=== PATIENT | female | born 1960 | race Caucasian/White ===

== ENCOUNTER 2016-09-17 09:41 | Inpatient (IN) | payer BC, OTHER ==
[~2016-09-17] VITALS: Ht 157.5 cm; Wt 113.8 kg
--- NOTE | ~2016-09-17 | HC ---
[facility] [place] [address] CONSULTATION Name: JEANMARIE ANNE Room #: 244-P [facility] IN M.R.#: [id number] Admission: 09/17/16 Attend Phys: Luis Estrella DO Discharge: Date of : 62 Report #: [id number] THIS REPORT FOR: //name// CC: Luis Negretehanie Yamil DATE OF SERVICE: 09/20/2016 REASON FOR CONSULTATION: I was asked to evaluate concerning sepsis and diverticulitis-C. difficile colitis. HISTORY OF PRESENT ILLNESS: The patient is a 56-year-old who has underlying COPD and known diverticulosis. Several weeks ago, she was hospitalized with [id number] respiratory failure, exacerbation of COPD. She was discharged on Levaquin and prednisone taper. She finished her treatment last week. Now hospitalized with acute onset of abdominal pain associated with profuse diarrhea, low grade fever. Her pain worsened yesterday along with her diarrhea, tachycardia and increased lactate. She was transferred down to intensive care and given IV fluids. Placed on Zosyn in addition to vancomycin when C. diff, PCR came back positive. Feels better today, although still has significant pain, mostly in the right upper quadrant. Her stools remain liquid. She has a rectal tube in place. CT scan of the abdomen and pelvis showed evidence of inflammatory change in the hepatic flexure associated with what appears to give a microperforation and a 6 cm inflammatory mass in the around this area. No definite abscess. No other diffuse colitis changes seen. Previous cholecystectomy and hysterectomy. REVIEW OF SYSTEMS: No significant cough or sputum production. Her nausea has resolved. Has an indwelling Shane catheter and a PICC line. ALLERGIES: LIDOCAINE, LATEX. MEDICATIONS: As noted on her MAR including Zosyn, enteral vancomycin, IV metronidazole. PAST MEDICAL HISTORY: COPD; autoimmune liver disease, in remission; fibromyalgia; osteoporosis; hypertension; hyperlipidemia; interstitial lung disease; pulmonary cysts, status post thoracotomy; gastroesophageal reflux; anxiety; diverticulosis; total abdominal hysterectomy; bilateral salpingo-oophorectomy; cholecystectomy; history of alcohol intoxication, ankle fracture. FAMILY HISTORY: Noncontributory. SOCIAL HISTORY: Previous tobacco use and alcohol use. [facility] [address] [place] [address] CONSULTATION Name: JEANMARIE ANNE Room #: 244-P [facility] IN ..#: [id number] Admission: 09/17/16 Attend Phys: Luis Estrella DO Discharge: Date of : 62 Report #: [id number] PHYSICAL EXAMINATION: VITAL SIGNS: Currently afebrile. Heart rate 115. Vital signs were stable. Temperature was 99.3. GENERAL: Alert and cooperative. O2 saturation satisfactory on room air. Moderately obese. HEENT: Unremarkable. CHEST: Few crackles in the right base posteriorly. HEART: Regular, tachycardic. ABDOMEN: Obese, soft, tender throughout, most notable in the right upper quadrant with guarding. No rebound. Rectal tube in place with green liquid stool. EXTREMITIES: Unremarkable. LABORATORY STUDIES: Sodium 140, potassium 3.2, bicarbonate 18, creatinine 0.8. Liver function tests normal. Hemoglobin 9.8, platelet count 300,000, white count 4.7. Yesterday, she had 33% bands, now down to 7% bands. C. diff PCR positive. Urinalysis unremarkable. Lactate 2.7. Yesterday with a pH of 7.3. Stool occults were negative. Blood cultures are pending. Urine culture is negative to date. IMPRESSION AND PLAN: A 56-year-old with underlying chronic obstructive pulmonary disease, recently off steroids, now with diverticulitis and microperforation. No clear abscess amenable to drainage. Complicated by Clostridium difficile colitis. Along with this is sepsis, bandemia, lactic acidosis, metabolic acidosis. A surgical consultation has been obtained and a recommend observation at this time. I would recommend continuing broad antibiotic coverage with Zosyn for her perforation. Continue with metronidazole intravenously and enteral vancomycin. We will need to follow serial x-rays. Fluid resuscitation. Hopefully can avoid any further corticosteroid use in the near future. We need to monitor her condition closely. If any further deterioration, would require resection of the hepatic with an ileostomy. The patient will ultimately undergo surgical procedure to resect this area, but hopefully we can do this under more controlled situation. <ELECTRONICALLY SIGNED> By: Emilio Disla MD 09/20/162012 0951 1214 Emilio Disla MD /nt
--- NOTE | ~2016-09-17 | EKG ---
[address] [place] [address] ELECTROCARDIOGRAM REPORT Name: JEANMARIE ANNEN Room #: 244-P ADM IN M.R.#: [id number] Admission: 09/17/16 Attend Phys: Luis Estrella DO Discharge: Date of : 62 Report #: [id number] THIS REPORT FOR: //name// [facility] Test Date: 2016-09-19 Test Time: 17:07:30 Pat Name: JEANMARIE ANNE Department: Room: 244 Gender: F Room Service Waiter/Waitress: Paola ALEJO : 1960 Requested By: Luis Estrella Order Number: [id number] MD: Louis Jeter Measurements Intervals [place] Rate: 98 P: 55 ID: [id number] QRS: 11 QRSD: 97 T: 22 QT: 352 QTc: 450 Interpretive Statements Sinus rhythm No significant abnormality Compared to ECG 08/23/2016 10:04:01 No significant changes Electronically Signed On 09-20-2016 8:26:34 CDT by Louis Jeter [email or web address] <ELECTRONICALLY SIGNED> By: Louis Jeter MD, [facility] 09/20/16 0826 06 06 Louis Jeter MD, [facility] /EPI
--- NOTE | ~2016-09-17 | HC ---
[facility] [place] [address] CONSULTATION Name: JEANMARIE ANNE Room #: 244-P ADM IN M.R.#: [id number] Admission: 09/17/16 Attend Phys: Luis Estrella DO Discharge: Date of : 62 Report #: [id number] THIS REPORT FOR: //name// CC: Luis Lobo PRIMARY PHYSICIAN: Unknown. REFERRAL PHYSICIAN: Luis Estrella DO REASON FOR REFERRAL: Severe sepsis. HISTORY OF PRESENT ILLNESS: The patient is a 56-year-old white female who presents to the emergency room with increased abdominal pain. Overnight, she is felt to be septic. She was transferred to the ICU. Critical care, pulmonary consultation was requested. The patient was recently seen on most last hospitalization, 08/23/2016. She was admitted for exacerbation of asthma. She has known autoimmune hepatitis along with history of cystic lung disease. On this admission, because of abdominal pain, GI was consulted. CT abdomen and pelvis suggests diverticulitis. She is also felt to have C. difficile colitis. Presently, she is fairly stable in the ICU. Hemodynamically, she is stable. She denies any dyspnea. She does have abdominal pain. Denies any recent hemoptysis, hematemesis, hematochezia, or melena. PAST MEDICAL HISTORY: Notable for history of autoimmune hepatitis, , hypertension, osteoporosis, fibromyalgia, hypocholesterolemia, thoracotomy for "cyst resection from her lungs." She is also felt to have COPD. PAST SURGICAL HISTORY: As mentioned above. ALLERGIES: LATEX, which causes and LIDOCAINE causes nausea and vomiting. HOME MEDICATIONS: List reviewed. CURRENT HOSPITAL MEDICATIONS: Also reviewed. This includes Levaquin, nebulized bronchodilators, Cipro, and Flagyl. FAMILY HISTORY: Noncontributory. SOCIAL HISTORY: The patient does smoke. She drinks socially. REVIEW OF SYSTEMS: As mentioned above, otherwise 10-point system review negative. [facility] [address] [place] [address] CONSULTATION Name: JEANMARIE ANNE Room #: 244-P [facility] IN .R.#: [id number] Admission: 09/17/16 Attend Phys: Luis Estrella DO Discharge: Date of : 62 Report #: [id number] PHYSICAL EXAMINATION: GENERAL: She is awake, alert, in mild distress. VITAL SIGNS: Temperature is 99.4 degrees Fahrenheit, pulse is 120, respiratory rate is 20, blood pressure is 110/73 mmHg, and saturation 98%. HEENT: Normocephalic, atraumatic. NECK: Supple without lymphadenopathy or thyromegaly. CHEST: Breath sounds are decreased, but are clear without rales or wheezes. CARDIOVASCULAR: Distant heart sounds, but no obvious murmurs or gallop. Pulses are 2+/4+ bilaterally. BREASTS: Deferred. ABDOMEN: Soft, tender without any rebound tenderness, no masses felt. RECTAL: Deferred. EXTREMITIES: There is no edema, cyanosis or clubbing. LABORATORY DATA: CT abdomen and pelvis as mentioned above. Chest x-ray, mild basilar atelectasis. C. difficile toxin was positive. Electrolytes: Sodium 138, potassium 3.7, chloride 106, CO2 is 20, BUN is 11, creatinine is 1.6. Liver function profile is grossly unremarkable. WBC 5900, hemoglobin is 12.0, there are 33% bandemia. Albumin 2.4. Arterial blood gas revealed pH 7.30, pCO2 of 35, pO2 80 on room air. IMPRESSION: 1. Severe sepsis secondary to Clostridium difficile colitis along with diverticulitis. 2. Progressive metabolic acidosis due to severe sepsis. Suspect lactic acidosis. 3. Acute kidney injury due to above. 4. Protein-calorie malnutrition, severe. 5. Acute respiratory distress. 6. History of chronic obstructive pulmonary disease, presumed asthma. 7. Autoimmune hepatitis. Agree with sepsis protocol. IV fluids, vasopressors as needed. She will need IV access. I will consult PICC IV access team or interventional radiology. We will need to correct metabolic acidosis. CT of the abdomen and pelvis suggests possible small bowel perforation. She has been followed by surgery and GI. If symptoms does not improve, she may warrant surgical treatment. DVT and GI prophylaxis will be addressed. Bronchodilators will be added, but we will defer corticosteroids given her infectious and given her above problems. [address] [address] CONSULTATION Name: JEANMARIE ANNE Room #: 244-P ADM IN M.R.#: [id number] Admission: 09/17/16 Attend Phys: Luis Estrella DO Discharge: Date of : 62 Report #: [id number] Thank you for this consultation. <ELECTRONICALLY SIGNED> By: Suresh Morgan MD 09/20/16 1557 1049 1324 Suresh Morgan MD /nt
--- NOTE | ~2016-09-17 | HC ---
[facility] [place] [address] CONSULTATION Name: JEANMARIE ANNE Room #: 244-P [facility] IN M.R.#: [id number] Admission: 09/17/16 Attend Phys: Luis Estrella DO Discharge: Date of : 62 Report #: [id number] THIS REPORT FOR: //name// CC: Luis Estrella Edwina Shentree DATE OF SERVICE: 09/19/2016 ATTENDING PHYSICIAN: Luis Estrella DO CONSULTING PHYSICIAN: Que Monaco MD REASON FOR CONSULTATION: Abdominal pain. HISTORY OF PRESENT ILLNESS: This is a friendly 56-year-old female patient who I was asked to see emergently for abdominal pain. The patient was admitted on 09/17/2016. She had developed abdominal pain in her right abdomen and subjective low-grade fever and diaphoresis. Her symptoms started around 7 p.m. on Saturday evening, which prompted her visit to the emergency room the following morning. She also had nausea and vomiting. At the time of her admission, she underwent a CT of the abdomen and pelvis which showed diverticulitis with moderate diverticulosis at the hepatic flexure without abscess or free air. The patient was also found to be Clostridium difficile positive. She has a history of chronic diarrhea. The reason for the stat consult was for mental status changes and worsening abdominal pain. The patient underwent a repeat CT scan and was found to have diverticulitis with a possible microperforation with 1 small air bubble in the tissue cephalad to the colon. Her lactate was also mildly elevated. The patient was transferred to the intensive care unit after her CT scan. The patient denies significant confusion at this time. She reports ongoing pain in the right abdomen, but also answers questions appropriately. She has been passing flatus and liquid stools. She has a history of recent hospitalization this past August for reactive way disease for which she was placed on a prednisone taper. She reports gaining nearly 20 pounds. She is no longer on the prednisone. She also reports having been on prednisone for quite some time prior to her most recent hospitalization. PAST MEDICAL HISTORY: Significant for COPD, asthma, obesity associated with steroid use, autoimmune liver disease, fibromyalgia, osteoporosis, reactive airway disease, hypertension, hyperlipidemia, interstitial lung disease, pulmonary cysts, gastroesophageal reflux and anxiety. She also has known diverticulosis. PAST SURGICAL HISTORY: Includes previous ovarian cystectomy operations, total abdominal hysterectomy with bilateral salpingo-oophorectomy, cholecystectomy, and pulmonary cysts, excised through a thoracotomy. [address] [address] CONSULTATION Name: JEANMARIE ANNE Room #: 244-P [facility] IN M.R.#: [id number] Admission: 09/17/16 Attend Phys: Luis Estrella DO Discharge: Date of : 62 Report #: [id number] HOME MEDICATIONS: (Please see the hospital chart/EMR for details) includes albuterol, Neurontin, Zestril, Zoloft, Ambien, tramadol, Xanax, omeprazole, Singulair, potassium chloride, Colestid and vitamin D. ALLERGIES: LIDOCAINE causes nausea, vomiting and hypertension. The patient also has a LATEX allergy. FAMILY HISTORY: Reviewed and noncontributory to this hospitalization. SOCIAL HISTORY: The patient denies use of tobacco, alcohol or illicit drugs. She reports having drank a bottle of fireball per week and smoking a quarter pack of cigarettes a day, having quit both 1 month ago. She denies any use of illicit drugs. She works in [employer] review at the [employer]. REVIEW OF SYSTEMS: As per history of present illness. GENERAL: The patient denies current fever or chills. Denies unintentional weight loss. She gained at least 100 pounds with steroid use according to the patient. HEENT: Denies changes in taste, vision, hearing, or smell. RESPIRATORY: Denies worsening shortness of breath. Has a history of COPD and reactive airway disease. CARDIOVASCULAR: Denies chest pain or palpitations. GASTROINTESTINAL: As per history of present illness. Denies bright red blood per rectum. GENITOURINARY: Denies dysuria, urgency, increased urinary frequency or hematuria. MUSCULOSKELETAL: Has "nodules" that are occasionally painful. Has a history of fibromyalgia. Reports joint pain. NEUROLOGIC: Denies headaches, numbness or tingling. PSYCHIATRIC: Denies depression, has a history of anxiety. Denies suicidal ideations. SKIN AND INTEGUMENTARY: Denies new skin lesions, rashes, or moles. ENDOCRINE: Denies polydipsia, polyuria, heat or cold intolerance. HEMATOLOGIC: Denies easy bleeding, bruising or anemia. All other review of systems is negative. PHYSICAL EXAMINATION: VITAL SIGNS: Temperature 96.1, blood pressure 95/55, pulse 103, respirations 20. GENERAL: This is an obese 56-year-old female patient in no acute distress. She is slightly slurring her words but otherwise appears appropriate. Alert and oriented. HEENT: Atraumatic, normocephalic with moist mucosal membranes. Oropharynx is clear. She has no scleral icterus. [facility] [address] [place] [address] CONSULTATION Name: JEANMARIE ANNE Room #: 244-P ADM IN M.R.#: [id number] Admission: 09/17/16 Attend Phys: Luis Estrella DO Discharge: Date of : 62 Report #: [id number] NECK: Supple, no appreciable lymphadenopathy. Trachea is midline. CHEST: Clear bilaterally. No crackles or wheezes. CARDIOVASCULAR: Regular rate and rhythm/mild sinus tachycardia, S1, S2. ABDOMEN: Soft, but tender to palpation, greatest in the right mid abdomen. She has no guarding, but mild rebound. There is fullness in the right abdomen. She has no appreciable hernias, no overlying erythema or edema. GENITOURINARY: Normal external female genitalia. EXTREMITIES: No clubbing or cyanosis. NEUROLOGIC: Cranial nerves 2-12 grossly intact. PSYCHIATRIC: Normal mood and affect. SKIN AND INTEGUMENTARY: No acute inflammatory changes, rashes or lesions are present. LABORATORY DATA: CBC Most recently shows a white blood cell count of 5.8, hemoglobin 12.0, hematocrit 35.7 and platelets 294. She has 33% bandemia. Her comprehensive metabolic profile shows sodium 136, potassium 3.7, chloride 106, CO2 20, BUN 11, creatinine 1.6 (from 0.6), glucose 107. Her ABG shows a pH of 7.3, pCO2 35.6, pO2 80.6 and lactate of 2.7. RADIOLOGIC STUDIES: Abdominal x-ray from today shows a nonspecific bowel gas pattern. CT of the abdomen and pelvis findings are as noted above. A 6 cm area of inflammation involving the fat just superior to the junction of the hepatic flexure and proximal transverse colon was present with tiny air collection within the mesenteric fat suggestive of diverticulitis with microperforation and acute inflammatory changes within the adipose tissue. No free intraperitoneal air or abscess was seen. IMPRESSION AND PLAN: This is a 56-year-old female patient with the above listed comorbidities who now has right-sided abdominal pain who was recently diagnosed with Clostridium difficile colitis. She has chronic diarrhea and her bowels are currently functional. She has diverticulitis of the hepatic flexure with a microperforation versus air in small vessel. There is no evidence for free intraperitoneal air at this time. The pathophysiology and natural history of diverticular disease were discussed in detail with the patient as well as treatment alternatives and surgical options. It is possible that the C. diff caused worsening of her diverticulitis. Nonetheless, the patient has complicated diverticulitis of the hepatic flexure (secondary to the microperforation). Simple diverticulitis was also discussed with the patient. Diverticulitis with a microperforation is considered, complicated and because of this, surgical therapy is warranted. She would benefit from resection of the inflamed area (ultimately she would require a right hemicolectomy) after the inflammatory process has subsided, provided she continues to improve on her current antibiotic recommendation. Would also rest her bowel and will follow along with serial abdominal exams as well as labs and x-rays as necessary. Should she clinically defervesce, she may require more emergent resection and this would involve a right hemicolectomy with an end ileostomy that could be [address] [address] CONSULTATION Name: DAYANAJEANMARIE ELINOR Room #: 244-P [facility] IN M.R.#: [id number] Admission: 09/17/16 Attend Phys: Luis Estrella DO Discharge: Date of : 62 Report #: [id number] reversed 6 months after the procedure. The options were discussed in detail with the patient as well as the risks, benefits and expectations. The patient expressed understanding of the current plan to treat conservatively. Sixty three minutes were spent interviewing and examining the patient as well as holding the detailed discussion as documented above after reviewing the images with radiology. I sincerely appreciate the opportunity to participate in the care of this patient and will leave further recommendations and orders in the electronic medical record as appropriate. <ELECTRONICALLY SIGNED> By: Que Monaco MD, FACS 09/21/16 1146 2040 0132 Que Monaco MD, FACS /nt
[~2016-09-17 09:41] MED LIST: ALBUTEROL2.5 MG/0.5 INH; AMBIEN 5 MG TABL5 M1 PO; B12INJ IM; BENTYL 10 MG CA10 M1 PO; BYSTOLIC 5 MG5 M1 PO; COLACE100 MG PO; COLESTID1 GM PO; FLEXERIL PO; GABAPENTIN 100100 MG PO; HYDROCODONE-AP1 EAC6 PO; HYOSCYAMINE0.125 MG PO; IBUPROFEN 800800 M1 PO; IMURAN 50MG TAB50 M1 PO; K-DUR10 MEQ PO; LEVAQUIN 500 M500 M1 PO; LEVAQUIN 500 M500 M2 PO; LEVAQUIN 500 M500 MG PO; LISINOPRIL20 MG PO; OMEPRAZOLE 20 M20 M1 PO; PAXIL10 MG; PERCOCET PO; PREDNISONE 10 M10 MG; PREDNISONE 20 M20 MG PO; PREMARIN0.625 MG PO; PROMETHAZINE/C118 ML PO; PROTONIX 20 MG20 M1 PO; SERTRALINE HCL50 MG PO; SINGULAIR 10 MG10 M1 PO; TESSALON PERLE100 MG PO; TRAMADOL 50 MG50 MG PO; TYLENOL325 MG PO; ULTRAM 50MG TAB50 MG PO; VITAMIN D1000 UNI1 PO; WELLBUTRIN XL150 MG PO; XANAX 0.25 MG0.25 MG PO; ZOFRAN ODT4 MG PO
[2016-09-17 09:48] VITALS: BP 157/108
[2016-09-17 10:08] LABS: URINE BLOOD TRACE (Negative); URINE GLUCOSE-RANDOM* NEGATIVE (Negative); URINE KETONES TRACE (Negative); URINE LEUKOCYTES-REFLEX NEGATIVE (Negative); URINE PROTEIN (DIPSTICK) TRACE (Negative); URINE SPECIFIC GRAVITY 1.025 (1.003-1.035)
[2016-09-17 10:09] LABS: URINE COLOR AMBER
[2016-09-17 10:10] LABS: ICTOTEST (BILI CONFIRMATORY) Negative (Negative); URINE BILIRUBIN NEGATIVE (Negative)
[2016-09-17 10:14] LABS: HEMATOCRIT 38.2 % (37.0-47.0); HEMOGLOBIN 13.1 gm/dL (12.0-15.0); MCH 30.5 pg (26.0-34.0); MCHC 34.3 g/dL (28.0-37.0); MCV 88.9 fL (80.0-100.0); PLATELET COUNT 253 thou/uL (150-400); RDW 13.8 % (10.5-14.5); WBC 15.9 thou/uL (4.0-11.0)
[2016-09-17 10:16] LABS: MANUAL DIFF YES
[2016-09-17 10:34] LABS: CALCIUM 9.4 mg/dL (8.5-10.1); CREATININE 0.7 mg/dL (0.6-1.3); POTASSIUM 3.9 mmol/L (3.5-5.1)
[2016-09-17 10:38] LABS: ALBUMIN 3.4 g/dL (3.4-5.0); TOTAL BILIRUBIN 2.1 mg/dL (<0.1-1.0); TOTAL PROTEIN 7.9 g/dL (6.4-8.2)
[2016-09-17 10:39] LABS: ABSOLUTE NEUTROPHILS 12.7 thou/uL (1.4-8.2); PLATELET ESTIMATE NORMAL; TOTAL CELL COUNT 100
[2016-09-17 15:10] VITALS: BP 125/77
[2016-09-17 15:30] VITALS: BP 108/65
[2016-09-17 19:45] VITALS: BP 182/74
[2016-09-18] VITALS (9 sets, daily range): BP systolic 98–149; BP diastolic 58–82
[2016-09-18 06:17] LABS: ALBUMIN 2.7 g/dL (3.4-5.0); CALCIUM 8.5 mg/dL (8.5-10.1); CREATININE 0.7 mg/dL (0.6-1.3); TOTAL BILIRUBIN 1.9 mg/dL (<0.1-1.0); TOTAL PROTEIN 6.6 g/dL (6.4-8.2)
[2016-09-18 18:50] LABS: CALCIUM 8.9 mg/dL (8.5-10.1); CREATININE 0.7 mg/dL (0.6-1.3); MAGNESIUM 1.6 mg/dL (1.8-2.4)
[2016-09-18 19:21] LABS: ALBUMIN 2.9 g/dL (3.4-5.0); DIRECT BILIRUBIN 0.2 mg/dL (<0.1-0.3)
[2016-09-19] VITALS (14 sets, daily range): BP systolic 84–149; BP diastolic 42–122
[2016-09-19 06:49] LABS: HEMATOCRIT 32.4 % (37.0-47.0); MCH 30.7 pg (26.0-34.0); MCHC 33.7 g/dL (28.0-37.0); MCV 90.9 fL (80.0-100.0); PLATELET COUNT 263 thou/uL (150-400); RBC 3.57 mil/uL (4.20-5.00); RDW 13.5 % (10.5-14.5); WBC 2.7 thou/uL (4.0-11.0)
[2016-09-19 06:55] LABS: HEMOGLOBIN 10.9 gm/dL (12.0-15.0); MANUAL DIFF YES
[2016-09-19 07:18] LABS: ALBUMIN 2.4 g/dL (3.4-5.0); CREATININE 0.6 mg/dL (0.6-1.3); POTASSIUM 3.4 mmol/L (3.5-5.1); TOTAL BILIRUBIN 0.6 mg/dL (<0.1-1.0); TOTAL PROTEIN 5.4 g/dL (6.4-8.2)
[2016-09-19 09:06] LABS: TOTAL CELL COUNT 100
[2016-09-19 09:08] LABS: ABSOLUTE NEUTROPHILS 1.5 thou/uL (1.4-8.2)
[2016-09-19 17:01] LABS: ABG SAMPLE TYPE ARTERIAL; BE(vivo) -8.4 mmol/L (-2 to +3); HCO3 17.2 mmol/L (22.0-26.0); LACTATE 2.76 mmol/L (0.5-2.0); O2(CT) 15.7 mL/dL (15.0-23.0); O2Hb 94.8 % (92.0-98.0); PCO2 35.6 mmHg (35.0-45.0); PO2 80.6 mmHg (80.0-100.0); STICK SITE R.RADIAL; pH 7.302 (7.360-7.450); sO2 94.9 % (92.0-98.0); tCO2 18.3 mmol/L (24.0-30.0)
[2016-09-19 17:58] LABS: HEMATOCRIT 35.7 % (37.0-47.0); MCH 31.1 pg (26.0-34.0); MCHC 33.5 g/dL (28.0-37.0); MCV 92.9 fL (80.0-100.0); PLATELET COUNT 294 thou/uL (150-400); RBC 3.84 mil/uL (4.20-5.00); RDW 13.9 % (10.5-14.5); WBC 5.8 thou/uL (4.0-11.0)
[2016-09-19 18:04] LABS: CALCIUM 8.7 mg/dL (8.5-10.1); POTASSIUM 3.7 mmol/L (3.5-5.1)
[2016-09-19 18:09] LABS: ALBUMIN 2.7 g/dL (3.4-5.0); TOTAL BILIRUBIN 0.3 mg/dL (<0.1-1.0); TOTAL PROTEIN 6.6 g/dL (6.4-8.2)
[2016-09-19 18:16] LABS: MANUAL DIFF YES
[2016-09-19 18:18] LABS: CREATININE 1.6 mg/dL (0.6-1.3)
[2016-09-19 18:53] LABS: ABSOLUTE NEUTROPHILS 3.5 thou/uL (1.4-8.2); METAMYELOCYTES 1 %; TOTAL CELL COUNT 100
[2016-09-19 18:54] LABS: ANISOCYTOSIS 2+; POLYCHROMASIA OCCASIONAL
[2016-09-20] VITALS (47 sets, daily range): BP systolic 73–150; BP diastolic 43–98
[2016-09-20 00:02] LABS: URINE BILIRUBIN NEGATIVE (Negative); URINE BLOOD TRACE (Negative); URINE COLOR YELLOW; URINE GLUCOSE-RANDOM* NEGATIVE (Negative); URINE KETONES NEGATIVE (Negative); URINE LEUKOCYTES-REFLEX NEGATIVE (Negative); URINE PROTEIN (DIPSTICK) TRACE (Negative); URINE UROBILINOGEN 0.2 E.U./dl (0.2-1.0)
[2016-09-20 07:09] LABS: HEMATOCRIT 28.5 % (37.0-47.0); MCH 31.4 pg (26.0-34.0); MCHC 34.5 g/dL (28.0-37.0); MCV 90.9 fL (80.0-100.0); PLATELET COUNT 300 thou/uL (150-400); RBC 3.13 mil/uL (4.20-5.00); RDW 13.6 % (10.5-14.5); WBC 4.7 thou/uL (4.0-11.0)
[2016-09-20 07:16] LABS: HEMOGLOBIN 9.8 gm/dL (12.0-15.0); MANUAL DIFF YES
[2016-09-20 07:28] LABS: CALCIUM 7.9 mg/dL (8.5-10.1); CREATININE 0.8 mg/dL (0.6-1.3); MAGNESIUM 1.6 mg/dL (1.8-2.4); POTASSIUM 3.2 mmol/L (3.5-5.1)
[2016-09-20 07:53] LABS: APTT 32.1 Seconds (24.5-32.8); INR 1.1; PROTIME 11.4 Seconds (9.3-11.4)
[2016-09-20 08:16] LABS: ABSOLUTE NEUTROPHILS 2.1 thou/uL (1.4-8.2); ANISOCYTOSIS SLIGHT; ATYPICAL LYMPHS 1 %; METAMYELOCYTES 1 %; POLYCHROMASIA OCCASIONAL; TOTAL CELL COUNT 100
[2016-09-20 13:43] LABS: POTASSIUM 3.6 mmol/L (3.5-5.1)
[2016-09-21] VITALS (17 sets, daily range): BP systolic 104–134; BP diastolic 63–87
[2016-09-21 06:32] LABS: HEMATOCRIT 30.3 % (37.0-47.0); HEMOGLOBIN 10.3 gm/dL (12.0-15.0); MCH 30.6 pg (26.0-34.0); MCHC 33.9 g/dL (28.0-37.0); MCV 90.1 fL (80.0-100.0); PLATELET COUNT 311 thou/uL (150-400); RBC 3.36 mil/uL (4.20-5.00); RDW 13.9 % (10.5-14.5); WBC 4.5 thou/uL (4.0-11.0)
[2016-09-21 06:38] LABS: MANUAL DIFF YES
[2016-09-21 06:42] LABS: CALCIUM 8.2 mg/dL (8.5-10.1); CREATININE 0.6 mg/dL (0.6-1.3); POTASSIUM 3.7 mmol/L (3.5-5.1)
[2016-09-21 07:41] LABS: METAMYELOCYTES 1 %; TOTAL CELL COUNT 100
[2016-09-21 07:42] LABS: ABSOLUTE NEUTROPHILS 2.5 thou/uL (1.4-8.2)
[2016-09-22 04:18] VITALS: BP 112/69
[2016-09-22 05:35] LABS: HEMATOCRIT 29.9 % (37.0-47.0); HEMOGLOBIN 10.1 gm/dL (12.0-15.0); MCH 30.5 pg (26.0-34.0); MCHC 33.7 g/dL (28.0-37.0); MCV 90.5 fL (80.0-100.0); PLATELET COUNT 308 thou/uL (150-400); RDW 14.1 % (10.5-14.5); WBC 6.3 thou/uL (4.0-11.0)
[2016-09-22 05:42] LABS: MANUAL DIFF YES
[2016-09-22 05:52] LABS: CALCIUM 8.3 mg/dL (8.5-10.1); CREATININE 0.7 mg/dL (0.6-1.3); POTASSIUM 3.8 mmol/L (3.5-5.1)
[2016-09-22 06:26] LABS: ABSOLUTE NEUTROPHILS 3.3 thou/uL (1.4-8.2); NUCLEATED RBCS 1 /100WBC; TOTAL CELL COUNT 100
[2016-09-22 06:27] LABS: ANISOCYTOSIS 1+; POIKILOCYTOSIS SLIGHT; POLYCHROMASIA OCCASIONAL
[2016-09-22 08:20] VITALS: BP 118/66
[2016-09-22 12:30] VITALS: BP 122/77
[2016-09-22 16:53] VITALS: BP 102/52
[2016-09-22 19:45] VITALS: BP 136/89
[2016-09-23 04:43] VITALS: BP 118/68
[2016-09-23 05:04] LABS: ABSOLUTE NEUTROPHILS 3.8 thou/uL (1.4-8.2); BASOPHILS 0.5 % (0.0-2.0); EOSINOPHILS 5.3 % (0.0-3.0); HEMATOCRIT 29.6 % (37.0-47.0); LYMPHOCYTES 27.3 % (24.0-44.0); MCH 30.4 pg (26.0-34.0); MCHC 33.8 g/dL (28.0-37.0); MCV 89.9 fL (80.0-100.0); MONOCYTES 11.6 % (1.0-8.0); PLATELET COUNT 314 thou/uL (150-400); POLYS 55.3 % (36.0-66.0); RBC 3.29 mil/uL (4.20-5.00); RDW 13.9 % (10.5-14.5); WBC 6.8 thou/uL (4.0-11.0)
[2016-09-23 05:13] LABS: MANUAL DIFF NO
[2016-09-23 05:16] LABS: CALCIUM 8.2 mg/dL (8.5-10.1); CREATININE 0.7 mg/dL (0.6-1.3); POTASSIUM 3.6 mmol/L (3.5-5.1)
[2016-09-23 17:46] VITALS: BP 120/70
[2016-09-23 20:11] VITALS: BP 102/66
[2016-09-24 05:13] VITALS: BP 126/76
[2016-09-24 12:41] VITALS: BP 113/63
[2016-09-24 21:09] VITALS: BP 106/66
[2016-09-25 05:00] VITALS: BP 126/72
[2016-09-25 05:19] LABS: HEMATOCRIT 32.2 % (37.0-47.0); HEMOGLOBIN 10.8 gm/dL (12.0-15.0); MCHC 33.4 g/dL (28.0-37.0); MCV 89.8 fL (80.0-100.0); PLATELET COUNT 334 thou/uL (150-400); RBC 3.59 mil/uL (4.20-5.00); RDW 14.2 % (10.5-14.5); WBC 8.3 thou/uL (4.0-11.0)
[2016-09-25 05:20] LABS: MANUAL DIFF YES
[2016-09-25 05:29] LABS: CALCIUM 9.1 mg/dL (8.5-10.1); CREATININE 0.7 mg/dL (0.6-1.3); POTASSIUM 3.8 mmol/L (3.5-5.1)
[2016-09-25 05:40] LABS: ABSOLUTE NEUTROPHILS 4.6 thou/uL (1.4-8.2); ATYPICAL LYMPHS 1 %; METAMYELOCYTES 1 %; MYELOCYTES 2 %; NUCLEATED RBCS 1 /100WBC; TOTAL CELL COUNT 100
[2016-09-25 07:15] VITALS: BP 126/72
[2016-09-25 11:40] VITALS: BP 127/61
[2016-09-25 16:11] VITALS: BP 125/75
[2016-09-25 20:44] VITALS: BP 121/72
[2016-09-26 04:12] VITALS: BP 105/64
[2016-09-26 07:44] VITALS: BP 96/58
[2016-09-26 11:22] LABS: HEMATOCRIT 32.2 % (37.0-47.0); HEMOGLOBIN 10.9 gm/dL (12.0-15.0); MCH 30.2 pg (26.0-34.0); MCHC 33.7 g/dL (28.0-37.0); MCV 89.5 fL (80.0-100.0); PLATELET COUNT 372 thou/uL (150-400); RDW 14.3 % (10.5-14.5); WBC 10.1 thou/uL (4.0-11.0)
[2016-09-26 11:30] LABS: CALCIUM 9.1 mg/dL (8.5-10.1); CREATININE 0.7 mg/dL (0.6-1.3); MANUAL DIFF YES; POTASSIUM 3.8 mmol/L (3.5-5.1)
[2016-09-26 11:58] LABS: ABSOLUTE NEUTROPHILS 5.1 thou/uL (1.4-8.2); ATYPICAL LYMPHS 1 %; METAMYELOCYTES 11 %; TOTAL CELL COUNT 100
[2016-09-26 11:59] LABS: POLYCHROMASIA OCCASIONAL
[2016-09-26 12:00] LABS: ANISOCYTOSIS 1+
[2016-09-26 15:45] VITALS: BP 109/63
[2016-09-26 20:24] VITALS: BP 103/59
[2016-09-27 04:29] VITALS: BP 102/53
[2016-09-27 06:14] LABS: HEMATOCRIT 33.7 % (37.0-47.0); HEMOGLOBIN 11.1 gm/dL (12.0-15.0); MCV 90.7 fL (80.0-100.0); RBC 3.72 mil/uL (4.20-5.00); RDW 14.8 % (10.5-14.5); WBC 9.6 thou/uL (4.0-11.0)
[2016-09-27 07:25] VITALS: BP 99/57
[2016-09-27 11:32] VITALS: BP 119/58
[2016-09-27] MEDS ORDERED: CIPRO500 MG PO (12:41)
[2016-09-27] MEDS ORDERED: FLAGYL500 MG PO (12:41)
[2016-09-27] MEDS ORDERED: VANCOMYCIN100 MG/ML PO (12:41)
[2016-09-27 21:15] VITALS: BP 101/59
[2016-09-28 05:00] VITALS: BP 112/67
[2016-09-28 08:00] VITALS: BP 117/69
[2016-09-28 11:03] VITALS: BP 117/69
[2016-09-28 11:09] VITALS: BP 117/69
== END 2016-09-28 11:48 | disposition home or self-care (01) | DRG 871 ==
LOC: ER 09:41 → 4S 11:31 → EROBS 11:31 → 2N 11:31 → 4S 15:12 → ICU 09-19 18:12 → 2N 09-21 13:45
PROVIDERS: Internal Medicine; Internal Medicine Endocrinology, Diabetes & Metabolism; Nurse Practitioner; Nurse Practitioner Adult Health; Physician Assistant; Specialist
PROC: B548ZZA Ultrasonography of Superior Vena Cava, Guidance (ICD-10-PCS; principal; 2016-09-20)
PROC: 02HV33Z Insertion of Infusion Device into Superior Vena Cava, Percutaneous Approach (ICD-10-PCS; principal; 2016-09-20)
DX: A41.9 Sepsis, unspecified organism (principal); E43 Unspecified severe protein-calorie malnutrition; A04.7 Enterocolitis due to Clostridium difficile; K94.23 Gastrostomy malfunction; N17.9 Acute kidney failure, unspecified; J80 Acute respiratory distress syndrome; J44.1 Chronic obstructive pulmonary disease with (acute) exacerbation; K57.20 Diverticulitis of large intestine with perforation and abscess without bleeding; Z68.42 Body mass index [BMI] 45.0-49.9, adult; R65.20 Severe sepsis without septic shock; K21.9 Gastro-esophageal reflux disease without esophagitis; K75.4 Autoimmune hepatitis; I10 Essential (primary) hypertension; J45.909 Unspecified asthma, uncomplicated; K58.0 Irritable bowel syndrome with diarrhea; E87.6 Hypokalemia; G89.29 Other chronic pain; K58.9 Irritable bowel syndrome, unspecified; F10.129 Alcohol abuse with intoxication, unspecified; M79.7 Fibromyalgia; I48.91 Unspecified atrial fibrillation; R07.89 Other chest pain; E66.01 Morbid (severe) obesity due to excess calories; R13.10 Dysphagia, unspecified; M81.0 Age-related osteoporosis without current pathological fracture; E78.5 Hyperlipidemia, unspecified; S92.301A Fracture of unspecified metatarsal bone(s), right foot, initial encounter for closed fracture; S82.891A Other fracture of right lower leg, initial encounter for closed fracture; X58.XXXA Exposure to other specified factors, initial encounter; Y84.8 Other medical procedures as the cause of abnormal reaction of the patient, or of later complication, without mention of misadventure at the time of the procedure; Z87.891 Personal history of nicotine dependence; Z86.19 Personal history of other infectious and parasitic diseases; Z79.01 Long term (current) use of anticoagulants; Z79.899 Other long term (current) drug therapy; Z88.4 Allergy status to anesthetic agent; Z91.040 Latex allergy status; Z87.01 Personal history of pneumonia (recurrent); Z90.49 Acquired absence of other specified parts of digestive tract; Y93.89 Activity, other specified; Y92.89 Other specified places as the place of occurrence of the external cause; Y99.8 Other external cause status; Z28.21 Immunization not carried out because of patient refusal
CPT/HCPCS: 10078; 10081; 10100; 27000

== ENCOUNTER → 2016-10-15 | Outpatient (CLI) | payer BC, OTHER ==
[~2016-10-15] MED LIST changes: +CIPRO500 MG PO; +FLAGYL500 MG PO; +VANCOMYCIN100 MG/ML PO
[2016-10-15 12:15] LABS: ABSOLUTE NEUTROPHILS 2.4 thou/uL (1.4-8.2); BASOPHILS 0.4 % (0.0-2.0); EOSINOPHILS 8.3 % (0.0-3.0); HEMATOCRIT 40.2 % (37.0-47.0); HEMOGLOBIN 13.4 gm/dL (12.0-15.0); LYMPHOCYTES 34.7 % (24.0-44.0); MCH 29.9 pg (26.0-34.0); MCHC 33.5 g/dL (28.0-37.0); MCV 89.4 fL (80.0-100.0); MONOCYTES 7.5 % (1.0-8.0); PLATELET COUNT 313 thou/uL (150-400); POLYS 49.1 % (36.0-66.0); RBC 4.49 mil/uL (4.20-5.00); RDW 14.6 % (10.5-14.5); WBC 4.8 thou/uL (4.0-11.0)
[2016-10-15 12:16] LABS: MANUAL DIFF NO
[2016-10-15 12:27] LABS: CALCIUM 8.9 mg/dL (8.5-10.1); CREATININE 0.6 mg/dL (0.6-1.0); POTASSIUM 3.9 mmol/L (3.5-5.1)
[2016-10-15 12:32] LABS: ALBUMIN 3.4 g/dL (3.4-5.0); TOTAL BILIRUBIN 0.5 mg/dL (<0.1-1.0); TOTAL PROTEIN 7.2 g/dL (6.4-8.2)
== END ==
LOC: CAT 11:38
PROVIDERS: Surgery
DX: R19.7 Diarrhea, unspecified (principal); K57.92 Diverticulitis of intestine, part unspecified, without perforation or abscess without bleeding; R11.2 Nausea with vomiting, unspecified; R10.9 Unspecified abdominal pain

== ENCOUNTER 2016-10-28 21:27 | Emergency (ER) | payer BC, OTHER ==
[~2016-10-28] VITALS: Ht 157.5 cm; Wt 92.5 kg
[2016-10-28 23:26] LABS: HEMATOCRIT 39.3 % (37.0-47.0); HEMOGLOBIN 13.2 gm/dL (12.0-15.0); MANUAL DIFF YES; MCH 29.4 pg (26.0-34.0); MCHC 33.7 g/dL (28.0-37.0); MCV 87.2 fL (80.0-100.0); PLATELET COUNT 231 thou/uL (150-400); RDW 13.8 % (10.5-14.5); WBC 4.8 thou/uL (4.0-11.0)
[2016-10-28 23:34] LABS: CREATININE 0.7 mg/dL (0.6-1.0); POTASSIUM 3.4 mmol/L (3.5-5.1)
[2016-10-28 23:38] LABS: ALBUMIN 3.2 g/dL (3.4-5.0); DIRECT BILIRUBIN 0.1 mg/dL (<0.1-0.3); TOTAL BILIRUBIN 0.5 mg/dL (<0.1-1.0); TOTAL PROTEIN 7.2 g/dL (6.4-8.2)
[2016-10-28 23:51] LABS: URINE BILIRUBIN 1+ (Negative); URINE BLOOD NEGATIVE (Negative); URINE COLOR BROWN; URINE GLUCOSE-RANDOM* NEGATIVE (Negative); URINE KETONES 1+ (Negative); URINE LEUKOCYTES-REFLEX TRACE (Negative); URINE PROTEIN (DIPSTICK) TRACE (Negative); URINE SPECIFIC GRAVITY >= 1.030 (1.003-1.035)
[2016-10-28 23:54] LABS: ABSOLUTE NEUTROPHILS 2.5 thou/uL (1.4-8.2); TOTAL CELL COUNT 100
[2016-10-28 23:58] LABS: ICTOTEST (BILI CONFIRMATORY) Positive (Negative)
[2016-10-29 00:01] LABS: CASTS None Seen /LPF (None Seen); CRYSTALS None Seen /LPF (None Seen); SQUAMOUS 0-3 Few /LPF (0-3); URINE RBC 0-2 Rare /HPF (0-2); URINE WBC-REFLEX 0-5 Rare /HPF (0-5)
[2016-10-29] MEDS ORDERED: NORCO 5-325 TA1 EACH PO (01:28)
[2016-10-29] MEDS ORDERED: LIDOCAINE 2%2 %/5 GM TOP (01:28)
[2016-10-29 13:09] LABS: HIV ANTIBODY Non Reactive (Non Reactive)
[2016-10-30 18:06] LABS: CHLAMYDIA TRACHOMATIS-PCR Negative (Negative); NEISSERIA GONORRHEA-PCR Negative (Negative)
== END 2016-10-29 01:47 | disposition home or self-care (01) ==
LOC: ER 21:27
PROVIDERS: Emergency Medicine
DX: T74.21XA Adult sexual abuse, confirmed, initial encounter (principal); R10.11 Right upper quadrant pain; R11.0 Nausea; K75.4 Autoimmune hepatitis; I10 Essential (primary) hypertension; E78.5 Hyperlipidemia, unspecified; Z90.710 Acquired absence of both cervix and uterus; Z90.49 Acquired absence of other specified parts of digestive tract; Z91.040 Latex allergy status; Z88.4 Allergy status to anesthetic agent; F17.210 Nicotine dependence, cigarettes, uncomplicated; F10.99 Alcohol use, unspecified with unspecified alcohol-induced disorder; K76.89 Other specified diseases of liver; J45.998 Other asthma

== ENCOUNTER 2018-10-21 09:02 | Emergency (ER) | payer BC, OTHER ==
[~2018-10-21] VITALS: Ht 157.5 cm; Wt 94.3 kg
[~2018-10-21 09:02] MED LIST changes: +LIDOCAINE 2%2 %/5 GM TOP; +NORCO 5-325 TA1 EACH PO
[2018-10-21] MEDS ORDERED: FAMOTIDINE 40 M40 M1 PO (09:37)
[2018-10-21] MEDS ORDERED: ENDOCET 5-3251 EACH PO (09:38)
[2018-10-21 09:39] LABS: ABSOLUTE NEUTROPHILS 5.8 thou/uL (1.4-8.2); BASOPHILS 1.2 % (0.0-2.0); HEMATOCRIT 45.3 % (37.0-47.0); HEMOGLOBIN 15.3 gm/dL (12.0-15.0); LYMPHOCYTES 26.1 % (24.0-44.0); MCH 29.7 pg (26.0-34.0); MCHC 33.6 g/dL (28.0-37.0); MCV 88.2 fL (80.0-100.0); MONOCYTES 5.8 % (1.0-8.0); PLATELET COUNT 325 thou/uL (150-400); POLYS 65.9 % (36.0-66.0); RBC 5.14 mil/uL (4.20-5.00); WBC 8.7 thou/uL (4.0-11.0)
[2018-10-21] MEDS ORDERED: ZOFRAN ODT4 MG PO (09:39)
[2018-10-21] MEDS ORDERED: NEURONTIN 400400 M1 PO (09:39)
[2018-10-21] MEDS ORDERED: CORICIDIN HBP1 EACH PO (09:40)
[2018-10-21] MEDS ORDERED: DEXILANT60 MG PO (09:41)
[2018-10-21 09:48] LABS: ANION GAP 15 mmol/L (7-16); BUN 9 mg/dL (7-18); CALCIUM 9.9 mg/dL (8.5-10.1); CHLORIDE 103 mmol/L (98-107); CO2 27 mmol/L (21-32); CREATININE 0.7 mg/dL (0.6-1.0); GLUCOSE 104 mg/dL (74-106); SODIUM 145 mmol/L (136-145)
[2018-10-21 09:50] LABS: POTASSIUM 2.9 mmol/L (3.5-5.1)
[2018-10-21 09:59] LABS: ALBUMIN 4.1 g/dL (3.4-5.0); MAGNESIUM 1.7 mg/dL (1.8-2.4); SGOT 24 U/L (15-37); SGPT 30 U/L (30-65); TOTAL BILIRUBIN 1.1 mg/dL (<0.1-1.0); TOTAL PROTEIN 7.9 g/dL (6.4-8.2); TROPONIN-I <0.06 ng/mL (<0.06)
[2018-10-21] MEDS ORDERED: TESSALON PERLE100 MG PO (10:10)
[2018-10-21] MEDS ORDERED: PREDNISONE 20 M20 MG PO (10:10)
[2018-10-21] MEDS ORDERED: POTASSIUM20 PO (10:15)
[2018-10-21 10:34] VITALS: BP 134/81
[2018-10-21] MEDS ORDERED: PROMETHAZINE-C473 ML PO (10:36)
--- NOTE | 2018-10-21 17:11 | EKG ---
[place] [address] [facility] [place] [address] ELECTROCARDIOGRAM REPORT Name: JEANMARIE ANNE [id number] ������������������ Admission: 10/21/18 ������������������ Attend Phys: Discharge: 10/21/18 ������������������ Date of : 62 Report #: [id number] ����������������������������������������������������������������� [id number] THIS REPORT FOR: //name// [facility] ED Test Date: 2018-10-21 Test Time: 09:26:24 Pat Name: JEANMARIE ANNE Department: Room: Gender: F [employer] Teacher: Marina BERKOWITZ : 1960 Requested By: Emilio Martinez Order Number: [id number] MD: Louis Jeter Measurements Intervals [place] Rate: 68 P: 64 ND: 124 QRS: 10 QRSD: 93 T: 30 QT: 410 QTc: 437 Interpretive Statements Sinus rhythm Normal tracing Compared to ECG 09/19/2016 17:07:30 No significant changes Electronically Signed On 10-21-2018 17:11:04 CDT by Louis Jeter [email or web address] ��������������������������������������������� <ELECTRONICALLY SIGNED> ���������������������������������������� By: Louis Jeter MD, [facility] ��������������������������������������������� 10/21/18 1711 0926 5 Louis Jeter MD, [facility]ACC /EPI
== END 2018-10-21 10:42 | disposition home or self-care (01) ==
LOC: ER 09:02
PROVIDERS: Emergency Medicine
DX: J44.9 Chronic obstructive pulmonary disease, unspecified (principal); E87.6 Hypokalemia; M79.7 Fibromyalgia; M81.0 Age-related osteoporosis without current pathological fracture; I10 Essential (primary) hypertension; E78.00 Pure hypercholesterolemia, unspecified; Z90.49 Acquired absence of other specified parts of digestive tract; Z90.710 Acquired absence of both cervix and uterus; Z87.891 Personal history of nicotine dependence; Z91.040 Latex allergy status; Z88.4 Allergy status to anesthetic agent